=== PATIENT | female | born 1990 | race Two or more races ===

== ENCOUNTER 2019-09-10 09:13 | Inpatient (IN) | payer OTHER ==
--- NOTE | 2019-09-10 03:00 | HP ---
General Information - Reason for Visit at 40 2/7 weeks with prior Section unknown scar, admitted for a repeat section. - General Information Maternal Age: 29 Grav: 2 Para: 1 SAB: 0 IEA: 0 Estimated Due Date: 09/08/19 Determined By: LMP - Early 8 week ultrasound consisitent with LMP. Gestational Age in Weeks/Days: 40 2/7 Maternal Blood Type and Rh: B Positive - Results this Serology/RPR Result: Non-Reactive Rubella Result: Immune HBsAg Result: Negative HIV Result: Negative GBS Culture Result: Negative Past Medical History Delivery History: Hx C/Section Pertinent Past Medical History: See Records Past Medical History Comment: None Pertinent Past Surgical History: See Records Pertinent Family History: See Records - Antepartal Records Antepartal Records: Reviewed, Complicated by: - Prior section Review of Systems Constitutional: Comfortable CV Complaint: No Respiratory: Shortness of Breath: No Gastrointestinal: No Nausea/Vomiting, Normal Bowel Movement Genitourinary: No Dysuria, No Bleeding, No Leaking Fluid Musculoskeletal: No Complaint, No Epigastric Pain Neurological: No Headache, No Visual Changes Movement: Normal Exam Allergies/Adverse Reactions: Allergies No Known Allergies Allergy (Verified 09/08/19 15:45) Temp 98.7 P 72 RR 20 BP 118/64 - Measurements Height: 4 ft 9 in Weight: 146 lb Weight in lbs: [id number] Body Mass Index (BMI): 31.6 Pre- Weight: 119 lb Weight Gained This : 27 lbs and 0 ozs - Exam Breast: Breast Exam Deferred CVA: No CVA Tenderness Extremities: No Edema Heart: Normal Rhythm/Heart Sounds HEENT: No Significant Findings Lungs: Clear Bilaterally Rectal: Rectal Exam Deferred Reflexes: DTR 2+ Thyroid: No Thyromegaly - Abdominal Exam Abdomen Exam: Non-Tender, Fundal Height Consistent with Dates - Ultrasound/Biophysical Profile Ultrasound Status: Not Done Targeted Exam Findings See L&D Outpatient Visit Provider Note for Findings: N/A Cervical Exam: Closed Effacement: <50% Station: -2 Presenting Part: Vertex Membrane Status: Intact Bleeding/Discharge: None EFM Findings - External Monitor Findings Baseline Heart Rate: 140 - by dopplers Contractions: None Assessment/Plan - Assessment 29 y/o with prior Section, unknown scar at 40 2/7 weeks - Obstetrical Risk Factors Obstetrical Risk Factors: Previous C/Section in Labor - Plan Plan: IV Hydration, Antibiotic Prophylaxis, C/S Delivery - Date/Time of Admission Date of Admission: 09/10/19 Time of Admission: 06:30
[~2019-09-10 09:13] MED LIST: Buffered Lidocaine 1% SYRIN* 1 ML/SYRINGE INTRADERM ONE; Lactated Ringers 1000 ML Bag* 1,000 ML IV SCH; Sodium Citrate/Citric Acid* 15 ML UDC PO ONE; ceFOXitin 2 GM IVPREMIX* 2 GM/50 ML BAG IVPB ONE
[2019-09-10 10:42] LABS: Urine Benzodiazepine Screen None Detected (None Detect); Urine Opiates Screen None Detected (None Detect)
[2019-09-10] MEDS ORDERED: OXYTOCIN* 10 UNITS/ML 1 ML VIAL ONE (10:42)
[2019-09-10] MEDS ORDERED: Phenylephrine 40 MCG/ML SYRINGE ONE (10:42)
[2019-09-10] MEDS ORDERED: Morphine PF AMP (0.5MG/ML)* 5 MG/10 ML AMP ONE (10:42)
[2019-09-10] MEDS ORDERED: Ondansetron INJ* 2 MG/ML VIAL IV PRN ×2 (10:55→11:01)
[2019-09-10] MEDS ORDERED: Naloxone* 0.4 MG/ML 1 ML VIAL IV PRN ×2 (10:55→10:56)
[2019-09-10] MEDS ORDERED: fentaNYL* 50 MCG/ML 2 ML VIAL (100 MCG VIAL) IV PRN (10:55)
[2019-09-10] MEDS ORDERED: diPHENhydraMINE IV* 50 MG/ML 1 ml VIAL (BENADRYL) IV PRN (11:01)
[2019-09-10] MEDS ORDERED: Nalbuphine* 10 MG/ML 1 ML VIAL IV PRN (11:01)
[2019-09-10] MEDS ORDERED: oxyCODONE/Acetamin 5/325 MG* TAB PO PRN ×2 (11:01)
[2019-09-10] MEDS ORDERED: EPHEDrine (Pressors)* 50 MG/ML VIAL ONE (11:22)
[2019-09-10] MEDS ORDERED: Lidocaine 1% w EPI 1:200,000* SDV 30 ML VIAL ONE (11:23)
[2019-09-10] MEDS ORDERED: Scopolamine 1.5 mg* PATCH ONE (11:50)
[2019-09-10] MEDS ORDERED: Carboprost Tromethamine* 250 MCG INJ ONE (11:55)
[2019-09-10] MEDS ORDERED: Ondansetron INJ* 2 MG/ML VIAL ONE (11:59)
[2019-09-10] MEDS ORDERED: Metoclopramide IV* 5 MG/ML 2 ML VIAL ONE (12:01)
[2019-09-10] MEDS ORDERED: Glycerin ADULT SUPP PR PRN (12:39)
[2019-09-10] MEDS ORDERED: Carboprost Tromethamine* 250 MCG INJ IM ONE (12:39)
[2019-09-10] MEDS ORDERED: Witch Hazel PAD* JAR TOPICAL PRN (12:39)
[2019-09-10] MEDS ORDERED: Dibucaine 1% 28.35 GM TUBE PR PRN (12:39)
[2019-09-10] MEDS ORDERED: Lactated Ringers 1000 ML Bag* 1,000 ML IV SCH (13:00)
[2019-09-10] MEDS: Ketorolac INJ* 30 MG/ML 1 ML VIAL IV PRN ×2 (15:28→21:56)
[2019-09-10] MEDS: Docusate CAP* 100 MG PO SCH ×2 (18:00→21:56)
[2019-09-10] MEDS: Simethicone TAB* 80 MG TAB.CHEW PO SCH ×2 (18:00→21:56)
--- NOTE | 2019-09-11 01:44 | OP ---
DATE OF OPERATION: 09/10/19 - ROOM #103 DATE OF : 86 SURGEON: Morgan Plascencia MD SALES AND SERVICE REPRESENTATIVE: Dr. Fariba Santana. ANESTHESIA: Spinal. PRE-OP DIAGNOSIS: at 40-2/7 weeks estimated gestational age with a prior section. POST-OP DIAGNOSIS: at 40-2/7 weeks estimated gestational age with a prior section. OPERATIVE PROCEDURE: Repeat low transverse section with vacuum extraction of the head. ESTIMATED BLOOD LOSS: 500 cc. SPECIMENS SENT TO PATHOLOGY: Cord blood. FLUIDS: She received 2750 cc of IV crystalloid fluid. URINE OUTPUT: 100 cc of clear urine. FINDINGS: Delivery of a male with vacuum extraction with Apgars of 8 and 9 over clear amniotic fluid, with a weight of 8 pounds and 1 ounce. The placenta was grossly intact with a 3-vessel cord noted. The uterus, adnexa, bowel, and bladder were all within normal limits. DESCRIPTION OF PROCEDURE: The patient was taken to the operating room where she was identified. She was placed on the operating table where a spinal anesthetic was obtained without difficulty. She was then placed in a supine position with a leftward tilt, prepped and draped in normal sterile fashion. A Pfannenstiel skin incision was made with a knife and carried through to underlying layer of fascia. The fascia was then nicked in the midline and extended laterally with curved Ballard scissors. The fascia was then grasped superiorly and inferiorly with Hebert clamps and dissected sharply from the rectus muscle. The rectus muscles were in the midline bluntly. The peritoneum was identified, grasped with pickups, and then entered sharply with Metzenbaum scissors, and extended superiorly and inferiorly bluntly. A bladder blade was inserted into the patient's abdomen. A bladder flap was created using Metzenbaum scissors, over which the bladder blade was then reinserted. A low transverse uterine incision was made with a knife and extended laterally with bandage scissors. The amniotic sac was ruptured. Amniotic fluid was noted to be clear. An attempt was made to deliver the head; however, the fetus body was making it difficult to deliver the baby; therefore, a vacuum was applied to the head in order to assist with delivery of the infant. Once the head was delivered, the vacuum was removed and the rest of the 's body was then delivered. The cord was clamped and cut, and the was handed off to awaiting curriculum specialist. Cord bloods were obtained. The placenta was removed manually. The uterus was then exteriorized, cleared of all clot and debris using moist laparotomy sponges. The uterine incision was then closed using 0 Polysorb suture in a running locked fashion with a second imbricating layer of 0 Polysorb suture with good hemostasis noted. At this point, the uterus was returned to the patient's abdomen. The gutters were then cleared of all clot and debris using moist laparotomy sponges and irrigation fluid which was suctioned. All the sponges and instruments were then removed from the patient's abdomen. The peritoneum was then closed using 3-0 Polysorb suture in a running fashion. The fascia was closed using 0 Polysorb suture in a running fashion, and a keloid at the incision was removed sharply and the incision was then closed subcuticularly with a 4-0 Monocryl subcuticular stitch. The patient tolerated the procedure well. Sponge, lap, and needle counts were correct x2. She was then transferred to the recovery room area in stable condition. [id number]/[facility] #: [id number] GARRY
[2019-09-11] MEDS ORDERED: Zolpidem TAB* 5 MG PO PRN (03:00)
[2019-09-11] MEDS ORDERED: oxyCODONE TAB* 5 MG TAB PO PRN ×2 (03:00)
[2019-09-11] MEDS: Ketorolac INJ* 30 MG/ML 1 ML VIAL IV PRN (04:38)
[2019-09-11] MEDS: Docusate CAP* 100 MG PO SCH ×3 (08:49→20:00)
[2019-09-11] MEDS: Simethicone TAB* 80 MG TAB.CHEW PO SCH ×4 (08:49→20:00)
[2019-09-11] MEDS: oxyCODONE/Acetamin 5/325 MG* TAB PO PRN ×3 (08:50→20:07)
[2019-09-11] MEDS ORDERED: Ferrous Gluconate TAB* 324 MG TAB PO SCH (09:00)
[2019-09-11 09:09] LABS: ABS Basophils 0.1 10^3/ul (0-0.2); ABS Lymphocytes 1.2 10^3/ul (1.0-4.8); ABS Monocytes 0.9 10^3/ul (0-0.8); Eosinophil % 0.2 %; Hematocrit 35 % (35-47); Hemoglobin 11.7 g/dL (12.0-16.0); Lymphocyte % 10.7 %; Mean Corpuscular HGB Conc 34 g/dL (31-36); Mean Corpuscular Hemoglobin 32 pg (27-31); Mean Corpuscular Volume 95 fL (80-97); Mean Platelet Volume 10.2 fL (7.4-10.4); Nucleated Red Blood Cells % 0.1; Platelet Count 199 10^3/uL (150-450); Red Blood Count 3.63 10^6 /uL (3.70-4.87); Red Cell Distribution Width 14 % (10-15); White Blood Count 11.2 10^3/uL (3.5-10.8)
[2019-09-11] MEDS: Ibuprofen TAB* 600 MG PO PRN ×3 (11:01→23:59)
[2019-09-11] MEDS ORDERED: Acetaminophen TAB* 325 MG PO PRN (12:39)
[2019-09-12 07:47] VITALS: BP 105/57
[2019-09-12] MEDS ORDERED: Hydrocortisone 0.5% OINT* 1 APPLIC TUBE TOPICAL ONE (09:00)
[2019-09-12] MEDS: Simethicone TAB* 80 MG TAB.CHEW PO SCH (09:29)
[2019-09-12] MEDS: Docusate CAP* 100 MG PO SCH (09:29)
[2019-09-12] MEDS: Ibuprofen TAB* 600 MG PO PRN (09:33)
[2019-09-12] MEDS ORDERED: Hydrocortisone 1% Oint(NF) 30 GM TUBE TOPICAL ONE (10:00)
[2019-09-13] MEDS ORDERED: Scopolamine PATCH Remove* 1 NOTE MISC PATCH OFF PRN (11:48)
== END 2019-09-12 11:30 | disposition home or self-care (01) | DRG 788 ==
LOC: MCHOB 09:13
PROVIDERS: ADMIT Obstetrics & Gynecology; ATTEND Obstetrics & Gynecology
PROC: 4A1HXCZ Monitoring of Products of Conception, Cardiac Rate, External Approach (ICD-10-PCS; 2019-09-10)
PROC: 10907ZC Drainage of Amniotic Fluid, Therapeutic from Products of Conception, Via Natural or Artificial Opening (ICD-10-PCS; 2019-09-10)
PROC: 10D00Z1 Extraction of Products of Conception, Low, Open Approach (ICD-10-PCS; principal; 2019-09-10 11:00)
DX: O34.211 Maternal care for low transverse scar from previous cesarean delivery (principal); O48.0 Post-term pregnancy; Z3A.40 40 weeks gestation of pregnancy; Z37.0 Single live birth
CPT/HCPCS: 36415; 80307; 85025; A9270-GY; G0480; J0694; J1885; J2001; J2405; J2590; J2765